=== PATIENT | female | born 1955 | race Caucasian/White ===

== ENCOUNTER 2018-01-17 12:34 | Emergency (ER) | payer OTHER ==
[~2018-01-17] VITALS: Ht 157.5 cm; Wt 62.0 kg
[2018-01-17 13:38] LABS: HEMATOCRIT 41.2 % (36.0-46.0); HEMOGLOBIN 14.6 G/DL (11.9-15.5); MCH 32.7 PG (29.0-34.0); MCHC 35.4 G/DL (30.0-36.0); MCV 92.4 FL (83-99); PLATELET COUNT 179 K/uL (156-360); RBC DIS.WIDTH-CV 12.3 % (11.8-14.6); RBC DIS.WIDTH-SD 41.9 % (39-53); RED BLOOD COUNT 4.46 M/uL (3.80-5.20); WHITE BLOOD COUNT 7.6 K/uL (4.1-10.2)
[2018-01-17 13:48] LABS: ALBUMIN 4.1 g/dL (3.2-4.8); CHLORIDE 107 mEq/L (99-109); POTASSIUM 3.5 mEq/L (3.7-5.4); SODIUM 142 mEq/L (136-147)
[2018-01-17 13:51] LABS: GLUCOSE 105 mg/dL (70-99)
[2018-01-17 13:54] LABS: ALKALINE PHOSPHATASE 131 IU/L (3-129); CREATININE 0.7 mg/dL (0.6-1.3); GFR ESTIMATE (CALCULATED) > 59 mL/min/
[2018-01-17 13:55] LABS: UREA NITROGEN (BUN) 8 mg/dL (9-23)
[2018-01-17 13:56] LABS: AST (GOT) 34 IU/L (2-34)
[2018-01-17 13:57] LABS: ALT (GPT) 52 IU/L (3-49)
[2018-01-17 14:26] LABS: APPEARANCE SL.HAZY ((CLEAR)); BILIRUBIN NEGATIVE; BLOOD NEGATIVE; COLOR YELLOW ((YELLOW)); GLUCOSE (STRIP) NEGATIVE; KETONES NEGATIVE; LEUKOCYTES SMALL; NITRITE NEGATIVE; PROTEIN (STRIP) NEGATIVE; SPECIFIC GRAVITY 1.018 (1.000-1.030); UROBILINOGEN 0.2 MG/DL (0.2-1.0)
[2018-01-17 14:32] LABS: BACTERIA RARE /HPF; EPITHELIAL CELLS 1+ /HPF; MUCUS TRACE /LPF; UCUL ADDED? YES
[2018-01-17 14:58] LABS: TROP-I INTERPRETATION NEGATIVE; TROPONIN-I 0.01 ng/mL (0.0-0.30)
[2018-01-17 16:23] LABS: C DIFF TOXIN NEGATIVE (NEGATIVE)
[2018-01-17] MEDS ORDERED: CIPRO500 MG PO (17:28)
[2018-01-17] MEDS ORDERED: FLAGYL500 MG PO (17:28)
[2018-01-17 18:16] VITALS: BP 155/71
== END 2018-01-17 20:15 | disposition home or self-care (01) ==
LOC: EME 12:34
PROVIDERS: Physician Assistant Medical
DX: K52.9 Noninfective gastroenteritis and colitis, unspecified (principal); R42 Dizziness and giddiness; I25.2 Old myocardial infarction
CPT/HCPCS: 74177; 80053; 81003; 84484; 85027; 87077; 87086; 87186; 87493; 87506; 93005; 99281; 99284; J7030